=== PATIENT | male | born 1965 | race Caucasian/White ===

== ENCOUNTER 2017-04-17 09:58 | Emergency (ER) | payer OTHER, SELFPAY ==
[2017-04-17 09:59] VITALS: BMI 30.4
[2017-04-17 10:08] VITALS: TEMP 98.2
[2017-04-17] MEDS ORDERED: Morphine 4 MG/ML VIAL ONE (10:54)
--- NOTE | 2017-04-17 11:13 | C.PDOC ---
History Of Present Illness 52 y/o male presents to the ED with complaints of lower back pain radiating to groin and testicles. Pt states he was exercising 3 days ago injuring his back. He woke up the next day with moderate pain, progressively worsening. Pain is worse with laying flat or with movement. Pt took Motrin without relief. Pain more severe today, patient's roommate assisted him to ambulate and applied bengay, patient then reports passing out. Denies fall to ground, came back to promptly. Pt denies CP, SOB, headache, vomiting, weakness, numbness or any other complaints. Time Seen by Provider: 04/17/17 10:17 Chief Complaint (Nursing): Syncope History Per: Patient History/Exam Limitations: no limitations Onset/Duration Of Symptoms: Mins Current Symptoms Are (Timing): Gone Fall Associated With With Symptoms: No Severity: Mild Recent travel outside of the [place]: No - Symptoms Of CVA Recent Head Trauma: No Past Medical History Reviewed: Historical Data, Nursing Documentation, Vital Signs Vital Signs: Last Vital Signs Temp 98.2 F 04/17/17 10:07 Pulse 74 04/17/17 13:33 Resp 18 04/17/17 13:33 BP 112/74 04/17/17 13:33 Pulse Ox 100 04/17/17 13:36 - Medical History PMH: Hyperthyroidism (NOT TAKING MEDS) - [facility] Procedures CORONAR ARTERIOGR-2 CATH (01/15/14) LEFT HEART CARDIAC CATH (01/15/14) LT HEART ANGIOCARDIOGRAM (01/15/14) Family History: States: Unknown Family Hx - Social History Hx Tobacco Use: No Hx Alcohol Use: No Hx Substance Use: No - Immunization History Hx Tetanus Toxoid Vaccination: No Hx Influenza Vaccination: No Hx Pneumococcal Vaccination: No Review Of Systems Except As Marked, All Systems Reviewed And Found Negative. Constitutional: Negative for: Fever Cardiovascular: Negative for: Chest Pain Respiratory: Negative for: Shortness of Breath Gastrointestinal: Negative for: Vomiting Musculoskeletal: Positive for: Back Pain (radaiting to groin and testicles) Neurological: Negative for: Weakness, Numbness, Headache Physical Exam - Physical Exam Appears: Non-toxic, No Acute Distress Skin: Warm, Dry Head: Atraumatic, Normacephalic Eye(s): bilateral: Normal Inspection, PERRL, EOMI Neck: Normal, Normal ROM, No Midline Cervical Tenderness, No Paracervical Tenderness, Supple Chest: Symmetrical Cardiovascular: Rhythm Regular, No Murmur Respiratory: Normal Breath Sounds, No Rales, No Rhonchi, No Wheezing Gastrointestinal/Abdominal: Normal Exam, Soft, No Tenderness Back: Vertebral Tenderness (lower lumbar), Other (left lower back pain with straight leg raise) Male Genital: No Testicular Tenderness, No Scrotal Swelling, No Circumcised Extremity: Normal ROM Extremity: Bilateral: Atraumatic Neurological/Psych: Oriented x3, Normal Speech, Normal Cognition, Normal Motor, Normal Sensation ED Course And Treatment - Laboratory Results Result Diagrams: 04/17/17 11:06 04/17/17 11:06 O2 Sat by Pulse Oximetry: 100 (room air) Pulse Ox Interpretation: Normal - CT Scan/US CT abdomen Other Rad Studies (CT/US): Read By Radiologist, Radiology Report Reviewed CT/US Interpretation: PROCEDURE: CT Abdomen and Pelvis without Oral or IV contrast. HISTORY: Back pain rad to both testies. COMPARISON: None available. TECHNIQUE: Contiguous axial images of the abdomen and pelvis. No oral or IV contrast administered. Coronal and Sagittal reformats generated and reviewed. Radiation dose: Total exam DLP = 1053.49 mGy-cm. This CT exam was performed using one or more of the following dose reduction techniques: Automated exposure control, adjustment of the mA and/or kV according to patient size, and/or use of iterative reconstruction technique. FINDINGS: There is limited evaluation of the solid organs without the administration of IV contrast. LOWER THORAX: Bibasilar atelectasis. No visible pleural effusion or pneumothorax. Small hiatal hernia. LIVER: Unremarkable unenhanced appearance. GALLBLADDER AND BILE DUCTS: Unremarkable unenhanced appearance. PANCREAS: Unremarkable unenhanced appearance. SPLEEN: Unremarkable unenhanced appearance. ADRENALS: Unremarkable unenhanced appearance. KIDNEYS AND URETERS: No hydronephrosis or obstructing renal calculus. BLADDER: Decompressed urinary bladder appears otherwise grossly unremarkable. REPRODUCTIVE: The prostate gland measures approximately 3.3 x 4.4 cm. APPENDIX : The appendix appears within normal limits of caliber. No secondary signs of acute appendicitis. BOWEL: The stomach is nondistended. Lack of oral contrast limits evaluation for bowel pathology. The bowel loops appear within normal limits of caliber without evidence of intestinal obstruction. Mild to moderate constipation. PERITONEUM: No significant free fluid. No definite free air. LYMPH NODES: No bulky lymphadenopathy identified. VASCULATURE: No aortic aneurysm. BONES: Degenerative changes. Patchy nonspecific sclerosis involving the pelvis. Focal osteopenia of the sacrum. OTHER FINDINGS: Small fat containing umbilical hernia. Small fat containing bilateral inguinal hernias. IMPRESSION: No acute pathology identified. Incidental findings as above. Progress Note: Plan: CT abd, EKG, labs, UA, IV fluids, morphine, toradol Medical Decision Making Medical Decision Making: No indication of stone on ct Clinically sympt c/w radicupathy REsults and plan discussed dc home pain meds Disposition Counseled Patient/Family Regarding: Diagnosis, Need For Followup - Disposition Referrals: [facility] [Outside] Disposition: HOME/ ROUTINE Disposition Time: 13:06 Condition: FAIR Prescriptions: Cyclobenzaprine [Cyclobenzaprine HCl] 1 tab PO Q8H PRN #25 tab PRN Reason: Muscle Spasm Naproxen [Naprosyn] 1 tab PO BID PRN #25 tab PRN Reason: Pain oxyCODONE/Acetaminophen [Percocet 5/325 mg Tab] 1 tab PO Q4H PRN #12 tab PRN Reason: .severe pain Instructions: Lumbar Radiculopathy (ED) Forms: Work Excuse - Clinical Impression Clinical Impression: Lumbar radiculopathy - Scribe Statement The provider has reviewed the documentation as recorded by the Carly Lambert Provider Attestation: All medical record entries made by the Carly were at my direction and personally dictated by me. I have reviewed the chart and agree that the record accurately reflects my personal performance of the history, physical exam, medical decision making, and the department course for this patient. I have also personally directed, reviewed, and agree with the discharge instructions and disposition.
[2017-04-17 11:17] LABS: BASO # 0.1 K/uL (0.0-0.2); BASO % 1.5 % (0.0-2.0); EOS # 0.3 K/uL (0.0-0.7); HEMATOCRIT 41.6 % (35.0-51.0); LYMPH # 2.3 K/uL (1.0-4.3); LYMPH % 24.9 % (20.0-40.0); MEAN CELL VOLUME 88.5 fL (80.0-94.0); MEAN CORPUSCULAR HEMOGLOBIN 29.3 pg (27.0-31.0); MEAN CORPUSCULAR HGB CONC 33.2 g/dL (33.0-37.0); MEAN PLATELET VOLUME 9.4 fL (7.2-11.7); MONO # 0.7 K/uL (0.0-0.8); MONO % 7.6 % (0.0-10.0); NRBC % 0.2 % (0.0-2.0); RED CELL DISTRIBUTION WIDTH 13.6 % (11.5-14.5); WHITE BLOOD COUNT 9.3 K/uL (4.8-10.8)
[2017-04-17 11:34] LABS: CHLORIDE 103 mmol/L (98-107); POTASSIUM 4.4 mmol/L (3.6-5.2); SODIUM 141 mmol/L (132-148)
[2017-04-17 11:36] LABS: BILIRUBIN,TOTAL 0.6 mg/dL (0.2-1.3); GFR AFRICAN-AMERICAN > 60
[2017-04-17 11:37] LABS: ALB/GLOB RATIO 1.3 (1.0-2.1); ALKALINE PHOSPHATASE 108 U/L (38-126); ALT/SGPT 29 U/L (21-72); AST/SGOT 35 U/L (17-59); BLOOD UREA NITROGEN 17 mg/dL (9-20); CARBON DIOXIDE 27 mmol/L (22-30); GLUCOSE,RANDOM 121 mg/dL (75-110); TOTAL PROTEIN 7.2 g/dL (6.3-8.3)
[2017-04-17 11:38] LABS: CALCIUM 8.9 mg/dl (8.6-10.4)
[2017-04-17 11:43] LABS: RBC URINE 1 /hpf (0-3); URINE BACTERIA RARE (<OCC); URINE BILIRUBIN NEGATIVE (NEGATIVE); URINE BLOOD NEGATIVE (NEGATIVE); URINE COLOR Yellow (YELLOW); URINE GLUCOSE (UA) NORMAL (Normal); URINE KETONE NEGATIVE (NEGATIVE); URINE LEUKOCYTE ESTERASE NEG Leu/uL (Negative); URINE PROTEIN 1+ mg/dL (NEGATIVE); URINE UROBILINOGEN NORMAL mg/dL (0.2-1.0); WBC URINE < 1 /hpf (0-5)
--- NOTE | 2017-04-17 11:45 | CT ---
PROCEDURE: CT Abdomen and Pelvis without Oral or IV contrast. HISTORY: Back pain rad to both testies COMPARISON: None available TECHNIQUE: Contiguous axial images of the abdomen and pelvis. No oral or IV contrast administered. Coronal and Sagittal reformats generated and reviewed. Radiation dose: Total exam DLP = 1053.49 mGy-cm. This CT exam was performed using one or more of the following dose reduction techniques: Automated exposure control, adjustment of the mA and/or kV according to patient size, and/or use of iterative reconstruction technique. FINDINGS: There is limited evaluation of the solid organs without the administration of IV contrast. LOWER THORAX: Bibasilar atelectasis. No visible pleural effusion or pneumothorax. Small hiatal hernia. LIVER: Unremarkable unenhanced appearance. GALLBLADDER AND BILE DUCTS: Unremarkable unenhanced appearance. PANCREAS: Unremarkable unenhanced appearance. SPLEEN: Unremarkable unenhanced appearance. ADRENALS: Unremarkable unenhanced appearance. KIDNEYS AND URETERS: No hydronephrosis or obstructing renal calculus. BLADDER: Decompressed urinary bladder appears otherwise grossly unremarkable. REPRODUCTIVE: The prostate gland measures approximately 3.3 x 4.4 cm. APPENDIX: The appendix appears within normal limits of caliber. No secondary signs of acute appendicitis. BOWEL: The stomach is nondistended. Lack of oral contrast limits evaluation for bowel pathology. The bowel loops appear within normal limits of caliber without evidence of intestinal obstruction. Mild to moderate constipation. PERITONEUM: No significant free fluid. No definite free air. LYMPH NODES: No bulky lymphadenopathy identified. VASCULATURE: No aortic aneurysm. BONES: Degenerative changes. Patchy nonspecific sclerosis involving the pelvis. Focal osteopenia of the sacrum. OTHER FINDINGS: Small fat containing umbilical hernia. Small fat containing bilateral inguinal hernias. IMPRESSION: No acute pathology identified. Incidental findings as above.
[2017-04-17 13:34] VITALS: BP 112/74; PULSE 74; RESP 18
[2017-04-17 13:36] VITALS: O2SAT 100
== END 2017-04-17 13:32 | disposition home or self-care (01) ==
LOC: C.ER 09:58
DX: M54.16 Radiculopathy, lumbar region (principal)
CPT/HCPCS: 74176; 80053; 81001; 85025; 96374; 96375; 99285; J1885; J2270

== ENCOUNTER 2017-08-31 14:29 | Emergency (ER) | payer SELFPAY ==
[2017-08-31 14:29] VITALS: BMI 30.4
[2017-08-31 14:48] VITALS: TEMP 98.1; O2SAT 98
--- NOTE | 2017-08-31 15:20 | C.PDOC ---
History Of Present Illness Raghav is a 52 y/o male who presents to the ED complaining of left ear pain for the past 2 days, which has been constant and progressively worsening. Pain is described as a sharp pressure and is associated with decreased hearing. No ringing, but he feels like there is fluid in the ear. Took 1 tab of amoxicillin today that he got from a friend. No pain medications taken prior to arrival. He tried to clean the ear with hydrogen peroxide. Pain also worsens with chewing. No abdominal pain, nausea, vomiting, diarrhea, fever, chills, cough, sore throat, or rash. Additionally, patient complains of urinary urgency for 2 months, but no blood in the urine. PMD: None provided Time Seen by Provider: 08/31/17 14:49 Chief Complaint (Nursing): ENT Problem History Per: Patient History/Exam Limitations: None Onset/Duration Of Symptoms: Days (x2) Current Symptoms Are (Timing): Still Present Past Medical History Reviewed: Historical Data, Nursing Documentation, Vital Signs Vital Signs: Last Vital Signs Temp 98.1 F 08/31/17 14:44 Pulse 80 08/31/17 14:44 Resp 16 08/31/17 14:44 BP 136/85 08/31/17 14:44 Pulse Ox 98 08/31/17 16:17 - Medical History PMH: Hyperthyroidism (NOT TAKING MEDS) - [facility] Procedures CORONAR ARTERIOGR-2 CATH (01/15/14) LEFT HEART CARDIAC CATH (01/15/14) LT HEART ANGIOCARDIOGRAM (01/15/14) Family History: States: Unknown Family Hx - Social History Hx Tobacco Use: No Hx Alcohol Use: No Hx Substance Use: No - Immunization History Hx Tetanus Toxoid Vaccination: No Hx Influenza Vaccination: No Hx Pneumococcal Vaccination: No Review Of Systems Except As Marked, All Systems Reviewed And Found Negative. Constitutional: Negative for: Fever, Chills ENT: Positive for: Ear Pain (Left). Negative for: Throat Pain Respiratory: Negative for: Cough, Shortness of Breath Gastrointestinal: Negative for: Nausea, Vomiting, Diarrhea Genitourinary: Positive for: Other (Urinary urgency). Negative for: Hematuria Skin: Negative for: Rash Neurological: Negative for: Headache Physical Exam - Physical Exam Appears: Well, Non-toxic, No Acute Distress Skin: Normal Color, Warm, Dry Head: Atraumatic, Normacephalic Eye(s): bilateral: PERRL, EOMI, Other (Ptosis bilaterally) Ear(s): Left: Other (Left ear canal is swollen almost shut and appears very edematous, can't visual TM well. Ear very tender to movement of traigus and exam ), Right: Normal Nose: Normal Throat: Normal, No Erythema, No Exudate Neck: Normal, Supple Chest: Symmetrical Cardiovascular: Rhythm Regular, No Murmur Respiratory: Normal Breath Sounds, No Accessory Muscle Use Gastrointestinal/Abdominal: Normal Exam, Bowel Sounds (normal), Soft, No Tenderness Back: Normal Inspection, No Vertebral Tenderness Extremity: Normal ROM, No Pedal Edema, No Deformity Neurological/Psych: Oriented x3, Normal Speech, Normal Cranial Nerves ED Course And Treatment O2 Sat by Pulse Oximetry: 98 (RA) Pulse Ox Interpretation: Normal Progress Note: Ordered UA. UA reviewed and is negative. Will D/C with cipro, motrin, percocet, and [id number] ear drops. Patient to follow up with clinic. Disposition Counseled Patient/Family Regarding: Diagnosis, Need For Followup, Rx Given - Disposition Referrals: [facility] [Outside] Disposition: HOME/ ROUTINE Disposition Time: 16:13 Condition: STABLE Additional Instructions: Follow up with your doctor, or the clinic. Take medications for ear infection. Follow up with ENT. Prescriptions: Ciprofloxacin HCl [Cipro] 1 tab PO BID #14 tab Ibuprofen [Motrin] 600 mg PO TID #15 tab Neomycin/Polymyxin B/Hydrocort [Anhsatcs-Rzoqyadyx-La Ear Susp] 10 ml OT TID # 10 ml oxyCODONE/Acetaminophen [Percocet 5/325 mg Tab] 2 tab PO TID #15 tab Forms: [employer] (Slovenian) - POA Present On Arrival: None - Clinical Impression Clinical Impression: Otitis externa - PA / [employer] / Resident Statement MD/DO has reviewed & agrees with the documentation as recorded. MD/DO has examined the patient and agrees with the treatment plan. - Scribe Statement The provider has reviewed the documentation as recorded by the Scribe Reina Fleming All medical record entries made by the Scribe were at my direction and personally dictated by me. I have reviewed the chart and agree that the record accurately reflects my personal performance of the history, physical exam, medical decision making, and the department course for this patient. I have also personally directed, reviewed, and agree with the discharge instructions and disposition.
[2017-08-31 15:42] LABS: RBC URINE 1 /hpf (0-3); URINE BILIRUBIN NEGATIVE (NEGATIVE); URINE BLOOD NEGATIVE (NEGATIVE); URINE COLOR Yellow (YELLOW); URINE GLUCOSE (UA) NORMAL (Normal); URINE KETONE NEGATIVE (NEGATIVE); URINE LEUKOCYTE ESTERASE NEG Leu/uL (Negative); URINE PROTEIN NEGATIVE (NEGATIVE); URINE UROBILINOGEN NORMAL mg/dL (0.2-1.0); WBC URINE < 1 /hpf (0-5)
[2017-08-31 16:24] VITALS: BP 132/78; PULSE 76; RESP 20
== END 2017-08-31 16:28 | disposition home or self-care (01) ==
LOC: C.ER 14:29
DX: H60.92 Unspecified otitis externa, left ear (principal)